=== PATIENT | male | born 1975 | race Two or more races ===

== ENCOUNTER 2025-01-04 14:06 | Emergency (ER) | payer MEDICAID ==
[~2025-01-04] VITALS: Ht 170.2 cm; Wt 65.8 kg
[2025-01-04] MEDS: ALBUTEROL FS 2.5 MG/3 ML VIAL.NEB CONTNEB ONE (14:31)
[2025-01-04] MEDS: IPRATROPIUM NEB FS 0.5 MG/2.5 ML AMPUL.NEB NEB ONE (14:31)
[2025-01-04 14:33] VITALS: O2SAT 94
[2025-01-04] MEDS ORDERED: IPRATROPIUM NEB FS 0.5 MG/2.5 ML AMPUL.NEB ONE (14:42)
[2025-01-04] MEDS ORDERED: ALBUTEROL FS 2.5 MG/3 ML VIAL.NEB ONE (14:42)
[2025-01-04 14:45] LABS: PLATELET COUNT (AUTO) 245 K/uL (150-450); RED BLOOD CELL COUNT(AUTO) 5.50 MIL/uL (4.5-6.0); RED CELL DISTRIBUTION WIDTH 15.3 % (11.5-15.0); WHITE BLOOD COUNT (AUTO) 11.5 K/uL (4.3-11.0)
[2025-01-04 14:48] VITALS: O2SAT 97
[2025-01-04 14:52] LABS: CALCIUM, SERUM 9.0 mg/dL (8.5-10.1); CREATININE 0.7 mg/dL (0.6-1.3); SODIUM SERUM 136 mmol/L (136-145); UREA NITROGEN, BLOOD 19 mg/dL (7-18)
[2025-01-04] MEDS ORDERED: ONDANSETRON HCL/PF 4 MG/2 ML VIAL ONE (16:05)
[2025-01-04] MEDS: IV NS 0.9% 1,000 ML BAG IV ONE (16:07)
[2025-01-04] MEDS: ONDANSETRON HCL/PF - ER 4 MG/2 ML VIAL IV ONE (16:08)
[2025-01-04] MEDS ORDERED: BENZ-13 PO (18:04)
[2025-01-04] MEDS ORDERED: ONDA4TAB5 PO (18:04)
[2025-01-04] MEDS ORDERED: ALBU8.5H8 INH (18:13)
[2025-01-04 18:55] VITALS: BP 117/85; TEMP 98.5; O2SAT 98
== END 2025-01-04 18:40 | disposition home or self-care (01) ==
LOC: ER 14:18
DX: U07.1 COVID-19 (principal); R06.02 Shortness of breath; R07.89 Other chest pain; R11.2 Nausea with vomiting, unspecified; J44.9 Chronic obstructive pulmonary disease, unspecified; Z60.2 Problems related to living alone; Z87.891 Personal history of nicotine dependence
CPT/HCPCS: 99285; 96374; 71045; 96361; 87426; 93005; 87804 ×2; 85025; 80048; 36415; 84484 ×2; 94640; J7512; J2405; J7030